=== PATIENT | male | born 1995 | race Caucasian/White ===

== ENCOUNTER 2024-02-08 17:42 | Emergency (ER) | payer MEDICAID ==
[2024-02-08] MEDS: Cephalexin 500 MG Cap PO STA (19:05)
== END 2024-02-08 19:10 ==
LOC: MW.ED 17:42
DX: S51.812A Laceration without foreign body of left forearm, initial encounter (principal); L03.114 Cellulitis of left upper limb; F17.210 Nicotine dependence, cigarettes, uncomplicated; Z79.899 Other long term (current) drug therapy; Z75.8 Other problems related to medical facilities and other health care; X78.8XXA Intentional self-harm by other sharp object, initial encounter
CPT/HCPCS: 99283; A9270; 99284